=== PATIENT | female | born 1935 | race Caucasian/White ===

== ENCOUNTER 2016-04-17 09:01 | Outpatient (CLI) | payer OTHER ==
[~2016-04-17 09:01] MED LIST: AUGMENTIN875 MG PO; CARDIZEM C1 PO; CARDIZEM CD PO; CARDIZEM LA180 MG PO; CEPHALEXIN500 MG PO; COUMADIN1 MG PO; COUMADIN5 MG PO; FUROSEMIDE20 MG PO; HYDROCHLOROTHIA25 MG PO; MAG6464 MG PO; METOPROLOL TART25 MG PO; MICRO-K 10 EQU10 MEQ PO; NOVOLOG PE100 UNITS/ SC; PANTOPRAZOLE SO40 MG PO; PRAVACHOL80 MG PO; TOPROL XL50 MG PO
== END 2016-04-17 23:00 ==
LOC: LAB SRH 09:01
DX: Z51.81 Encounter for therapeutic drug level monitoring (principal); Z79.01 Long term (current) use of anticoagulants; I48.91 Unspecified atrial fibrillation
CPT/HCPCS: 90074; 94060

== ENCOUNTER 2016-05-25 10:35 | Inpatient (IN) | payer OTHER ==
[~2016-05-25] VITALS: Ht 170.2 cm; Wt 70.1 kg
--- NOTE | 2016-05-25 13:15 | DIAGNOSTIC IMAGING REPORT ---
PROCEDURE: XR CHEST 1 VIEW INDICATION: SHORTNESS OF BREATH TECHNIQUE: Portable AP view 11:50 a.m. COMPARISON: Chest 02/25/2016 03/05/2015 10/01/2014 and 02/09/2014 FINDINGS: Allowing for overlying wires and electrodes, findings suggest a 1.2 cm nodular dense at the right lung base. There is mild basilar parenchymal scarring. The rest of the lungs are clear. Moderate cardiomegaly and pulmonary vascular congestion. No evidence of interstitial edema. Thorax is unchanged. IMPRESSION: 1. There is a 1.2 cm nodule at the right lung base which is visualized on prior chest CT. 2. Moderate cardiomegaly (no change). 3. No evidence of acute process.
--- NOTE | 2016-05-25 17:44 | History & Physical Report ---
Admission Admit Date 05/25/16 Information Source Information Source: Self, Spouse/Partner, ED Record, Old Records History Chief Complaint SOB History of Present Illness 80yoF w/ hx of dCHF, aortic stenosis, afib, restrictive lung disease, who presents with worsening SOB over the past couple days. She has been coughing, but has not seen the color of the phlegm. She denies any fevers. She does have new orthopnea, and her LE swelling has been worsening over the past month or so. She has been on lasix, but her notes that this was increased signifcantly about 6 months ago without improvement in her swelling. She denies any chest pains, but her appetite has been very poor in the last couple weeks. She denies nausea, vomiting, or diarrhea. She denies having an echo done in the last couple years. Patient History 1. CHF (congestive heart failure) 2. Atrial fibrillation 3. Chronic anticoagulation 4. Hypertension 5. Hypercholesterolemia 6. Aortic stenosis Social History Patient denies any history of tobacco/alcohol/drug use. Family History FATHER, . MOTHER, , Age Unknown; Cause: Tumor of central nervous system. SISTER, Age 79. First degree relatives alive and well Daughter, Age 47. First degree relatives alive and well Son, Age 43. First degree relatives alive and well Relation not specified for: FHx: cancer Heart Disease Hypertension Medications and Allergies Medications Current Medications Sig/Jana Start time Last Medication Dose Route Stop Time Status Admin Prednisone 40 MG DAILY 05/26 0900 AC PO Pantoprazole Sodium 40 MG DAILY@0600 05/26 0600 AC Sesquihydrate PO Diltiazem HCl 180 MG BID 05/25 2100 AC PO Furosemide 60 MG BID 05/25 2100 AC IV Metoprolol Tartrate 75 MG BID 05/25 2100 AC PO Albuterol/Ipratropium 3 ML RTQ4H 05/25 2000 AC IN Atorvastatin Calcium 40 MG QPM 05/25 1800 AC PO Acetaminophen 650 MG Q6H PRN 05/25 161 AC PO Al Hydrox/Mg Hydrox/ 15 ML Q1H PRN 05/25 161 AC Simethicone PO Atropine Sulfate 0.5 MG Q3MIN PRN 05/25 1615 AC IV Docusate Sodium 250 MG BID PRN 05/25 1615 AC PO Magnesium Hydroxide 10 ML DAILY PRN 05/25 161 AC PO Morphine Sulfate 1 MG Q30MIN PRN 05/25 1615 AC IV Ondansetron HCl 4 MG Q6H PRN 05/25 1615 AC IV Allergies Coded Allergies: No Known Drug Allergy (07/13/15) Review of Systems Other As per HPI, rest of 10-point ROS unremarkable. Physical Exam Vital Signs / I&Os Vital Signs Date Time Temp Pulse Resp B/P Pulse O2 O2 Flow FiO2 Ox Delivery Rate 05/25 1618 2.0 05/25 1524 2.0 05/25 1217 2.0 General Appearance Alert, Oriented X3, Tachypnic, but able to speak in full sentences w/o accessory muscle use. Audible upper respiratory secretions. HEENT Moist mucous membranes Lungs Crackles throughout, expiratory wheezing Neck Supple, No JVD Cardiovascular Irregularly irregular S1S2, no murmur appreciated over respiratory sounds Abdomen Normal bowel sounds, Soft, No tenderness Extremities 2+ LE edema b/l Skin venous stasis changes of LE's Neurological No lateralizing signs Psych/Mental Status Mental status normal LAB Results Laboratory Tests 05/25 05/25 1230 1230 Chemistry Plasma Sodium (136 - 145 mmol/L) 141 Plasma Potassium (3.5 - 5.1 mmol/L) 3.5 Plasma Chloride (98 - 107 mmol/L) 102 CO2 (Enzymatic) (21 - 32 mmol/L) 28 BUN (7 - 18 mg/dL) 18 Creatinine (0.6 - 1.3 mg/dL) 0.8 Est GFR ( Amer) (mL/min) >60 Est GFR (Non-Af Amer) (mL/min) >60 Glucose (70 - 110 mg/dL) 112 Plasma Calcium (8.5 - 10.1 mg/dL) 8.9 Plasma Magnesium (1.8 - 2.4 mg/dL) 2.0 Total Bilirubin (0.0 - 1.0 mg/dL) 0.7 AST (15 - 37 U/L) 24 ALT (12 - 78 U/L) 23 Alkaline Phosphatase (46 - 116 U/L) 170 Creatine Kinase (24 - 260 U/L) 39 Troponin (0.00 - 1.5 ng/mL) 0.05 B-Natriuretic Peptide (5 - 100 pg/ml) 278 Total Protein (6.4 - 8.2 g/dL) 8.1 Albumin (3.3 - 5.0 g/dL) 3.3 Coagulation INR (0.8 - 1.2) 3.1 Hematology WBC (4.5 - 11.5 K/uL) 7.8 RBC (4.00 - 5.20 M/uL) 4.42 Hgb (12.0 - 16.0 gm/dL) 14.3 Hct (36.0 - 46.0 %) 42.2 MCV (80 - 100 fL) 95 MCH (26 - 34 pg) 32 RDW (11.6 - 14.8 %) 14.1 Neut % (Auto) (50 - 75 %) 72.2 Lymph % (Auto) (25 - 40 %) 16.7 [place] % (Auto) (3 - 14 %) 10.0 Eos % (Auto) (0 - 4 %) 0.6 Baso % (Auto) (0 - 2 %) 0.5 Plt Count, EDTA (150 - 400 K/uL) 234 PUBS MCHC (31 - 37 g/dL) 34 Microbiology Date/Time Procedure - Status Source Growth 05/25 1410 Influenza Screen - COMP NASALPHAR 05/25 1230 Blood Culture - RECD BLOOD Imaging CXR: cardiomegaly and mild vascular congestion Assessment and Plan Problem List 1. Acute respiratory failure with hypoxia Plan Most likely from decompensated heart failure +/-restrictive lung disease. Will wean O2 as possible, treatment as below. 2. Acute decompensated heart failure Plan Had an echo in 2013 w/ EF 68%, but could not assess diastolic function at that time. Since she has required a significant increase in her diuretics with no reported benefit in terms of her swelling, will repeat the echo to see if there has been any change in her cardiac function. Will place on 60mg IV lasix 2xd, goal net negative 500-1000cc over the next 24hrs. Will monitor strict I/Os, as well as improvement in her symptoms. 3. Aortic stenosis Plan noted to be mild on echo in 2013. Will re-evaluate with echo, as her hemodynamics could be tenuous with aggressive diuresis if has become severe. 4. Atrial fibrillation Plan Continue diltiazem, and on 1/2 dose of lopressor due to acute decompensated heart failure. Continue coumadin. Will monitor on telemetry. 5. ACUTE EXACERBATION OF RESTRICTIVE LUNG DISEASE Plan Given steroids and nebs in ED. Wheezing may be more related to pulmonary edema, but will treat with PO prednisone and scheduled nebs for now. No evidence of infectious cause, as no infiltrate and flu negative. FEN: cardiac, KEL PPx: on coumadin Code: FULL, per discussion w/ patient and in ED Dispo: Inpatient LOC for cardiac monitoring and diuresis as above, as will likely require >2MN hospital stay. E&M Codes Admission: Inpt-High/[id number]
--- NOTE | 2016-05-25 18:33 | ED CLINICAL REPORT ---
Clinical Report - Physicians/Mid Levels [facility] [address] [place] [address] 05/25/2016 10:36 Patient: YSABEL GOLDEN Time Seen: 11:02 May 25 2016. Arrived- By private vehicle. Historian- patient. CPT: ER phys charges level 5 plus (#[id number]). EKG interpretation (#[id number]). HISTORY OF PRESENT ILLNESS Chief Complaint: DYSPNEA and HISTORY OF CHRONIC OBSTRUCTIVE PULMONARY DISEASE and CONGESTIVE HEART FAILURE. This started about 2 days [employer]ARD PLATE [employer]; : SHORTNESS OF BREATH, DIFFICULTY BREATHING and WHEEZING and COUGH (and SOB past few days). and is still present. The dyspnea is described as moderate. The patient has had sputum production, a cough and dyspnea on exertion. No fever, sweating episodes, wheezing or chills. No chest pain or discomfort, calf pain, foot swelling or anxiety. No dizziness, tingling, numbness or palpitations. Similar symptoms previously: Recent medical care: Not recently seen/assessed. REVIEW OF SYSTEMS No chills, fever, muscle aches, sweats or nasal congestion. No sore throat, calf pain, chest pain, palpitations or abdominal pain. No black stools, bloody stools, constipation, diarrhea or nausea. No vomiting, urinary frequency, hematuria or skin lesions or rash. No dizziness, numbness, diabetic symptoms, easy bruising or symptoms of hypothyroidism. No difficulty with urination. The patient has had fatigue, a cough, difficulty breathing, pedal edema and weakness. No difficulty walking. PAST HISTORY UTI - Urinary Tract Infection. Congestive Heart Failure. Heart valve problems. Abnormal Test. Atrial Fibrillation. Pulmonary Nodule. Dyspnea. Aortic Stenosis. Mild cognitive disorder. Restrictive lung disease. Paroxysmal A-fib. Hyperlipidemia. Degenerative Joint Disease. Hypertension. Stress incontinence. Reflux. Immunizations. --10:49 Wanda Block R.N. ADDITIONAL SURGERIES: Right hip replacement. Medications: Warfarin Sodium Oral (Tablet 2 mg) 1 tablet (2mg Sat, , Thurs 3mg Sat, Sat, Saturday, Saturday). Vitamin D Oral (Capsule 1000 unit) 1 capsule, 2xday. Slow-Mag Oral 535mg, 1xday. Diltiazem HCl ER Oral 180 mg, 2xdaily. Furosemide Oral 40 mg, 4x a day. Metoprolol Tartrate Oral 150 mg, 2xday. Potassimin Oral 20 mEq, 4xdaily. Pravastatin Sodium Oral (Tablet 80 mg) 1 tablet, daily. Allergies: None. SOCIAL HISTORY Never smoker. ADDITIONAL NOTES The nursing notes have been reviewed. PHYSICAL EXAM Vital Signs: 05/25/2016 10:46 BP: 131/83. HR: 81. RR: 32. O2 saturation: 90%. Temp: 97.5 F. Pain level now: 0/10. Appearance: Alert. Patient in mild distress. Eyes: Eyes normal inspection. ENT: Nose normal. Pharynx normal. Neck: Normal inspection. No jugular venous distention. Neck supple. CVS: Abnormal rhythm, which is irregularly irregular. 1/6 mid systolic murmur. Respiratory: Moderate respiratory distress with anxiety and tachypnea. Expiratory moderate bilateral wheezes diffusely. Abdomen: Soft and nontender. Back: Normal inspection. Skin: Skin warm. Normal skin color. No rash. Extremities: Bilateral moderate 2+ edema of the lower extremities. Extremities exhibit normal ROM. Neuro: Oriented X 3. No motor deficit. No sensory deficit. Reflexes normal. LABS, X-RAYS, AND EKG EKG: Rate: 86. Atrial fibrillation. Normal QRS complex. Q waves in lead V1 and V2. Non-specific ST segment / T wave abnormalities. EKG unchanged when compared with prior EKG. The study has been interpreted contemporaneously. The EKG appears to be a good tracing. Artifact present. Chest X-ray: (Mild vascular congestion). Views: AP (portable). Technique: good. The X-rays were independently viewed by me and interpreted contemporaneously by me. Prior films were not available for comparison. Laboratory Tests: CBC w Diff: (LESLEE: 05/25/2016 12:30) ( MsgRcvd 05/25/2016 12:52) Final results Test Result Flag Units (Reference) WHITE BLOOD COUNT 7.8 K/uL (4.5-11.5) RED BLOOD COUNT 4.42 M/uL (4.00-5.20) HEMOGLOBIN 14.3 gm/dL (12.0-16.0) HEMATOCRIT 42.2 % (36.0-46.0) MEAN CELL VOLUME 95 fL (80-100) MEAN CORPUSCULAR HGB 32 pg (26-34) MEAN CORPUSCULAR HGB CONC 34 g/dL (31-37) RED CELL DISTRIBUTION WIDTH 14.1 % (11.6-14.8) PLATELET COUNT 234 K/uL (150-400) NEUTROPHIL % 72.2 % (50-75) LYMPH % 16.7 L % (25-40) MONO % 10.0 % (3-14) EOSINOPHIL % 0.6 % (0-4) BASOPHIL % 0.5 % (0-2) BNP: (LESLEE: 05/25/2016 12:30) ( [facility] 05/25/2016 13:23) Final results Test Result Flag Units (Reference) B-TYPE NATRIURETIC PEPTIDE 278 H pg/ml (5-100) CHEM 13 PANEL: (LESLEE: 05/25/2016 12:30) ( [facility] 05/25/2016 13:21) Final results Test Result Flag Units (Reference) GLUCOSE 112 H mg/dL (70-110) BUN 18 mg/dL (7-18) CREATININE 0.8 mg/dL (0.6-1.3) Estimated GFR >60 mL/min Estimated GFR- >60 mL/min Note: Persistent reduction over 3 months in eGFR<60 mL/min/1.73 m2 defines CKD. Patients with eGFR values>=60 mL/min/1.73 m2 may also have CKD if evidence ofpersistent proteinuria. Additional information may be foundat www.[email or web address].org. SODIUM 141 mmol/L (136-145) POTASSIUM 3.5 mmol/L (3.5-5.1) CHLORIDE 102 mmol/L (98-107) CARBON DIOXIDE 28 mmol/L (21-32) CALCIUM 8.9 mg/dL (8.5-10.1) TOTAL PROTEIN 8.1 g/dL (6.4-8.2) ALBUMIN 3.3 g/dL (3.3-5.0) BILIRUBIN, TOTAL 0.7 mg/dL (0.0-1.0) ALKALINE PHOSPHATASE 170 H U/L (46-116) AST (SGOT) 24 U/L (15-37) ALT (SGPT) 23 U/L (12-78) MAGNESIUM 2.0 mg/dL (1.8-2.4) CPK 39 U/L (24-260) TROPONIN I 0.05 ng/mL (0.00-1.5) TROPONIN REFERENCE RANGE:<0.1 NEGATIVE0.1-1.5 INDETERMINANT>1.5 POSITIVE Rapid Influenza Screen: (LESLEE: 05/25/2016 14:10) ( MsgRcvd 05/25/2016 14:37) Final results SPECIMEN DESCRIPTION: SWAB Test Result Flag Units (Reference) RAPID INFLUENZA SCREEN DATE: 05/25/16 INFLUENZA A: NEGATIVE SCREEN FOR INFLUENZA A INFLUENZA B: NEGATIVE SCREEN FOR INFLUENZA B . PROGRESS AND PROCEDURES Course of Care: BC times 1 HHN albuterol : not much change./ Lasix 40 mg IV No much urine output Xopenex HHN Solumedriol 80 mg IV Rocephin 2g IV Still with moderate wheezing . Drops sat to 90% with ambulation while on NC 02. Discussed case with on-call health care provider, (G[place]). Reviewed test results. Agreed upon treatment plan and decision to admit. Health care provider will see patient in ED. Patient/family counseled. Old medical records ordered. Disposition orders written. Disposition: Admitted to Acute Care. CLINICAL IMPRESSION Acute exacerbation of restrictive lung disease. Hypoxia Mild CHF Valvular heart disease. (Electronically signed by Wilton Gross MD 05/25/2016 16:31)
--- NOTE | 2016-05-25 18:33 | ED NURSING NOTES ---
Clinical Report - Nurses [facility] [address] [place] [address] 05/25/2016 10:36 Patient: YSABEL GOLDEN TRIAGE Triage time 10:46 May 25 2016. Acuity: LEVEL 3. Chief Complaint: SHORTNESS OF BREATH, DIFFICULTY BREATHING and WHEEZING and COUGH (and SOB past few days). 10:51 05/25/16. --10:51 Wanda Block R.N. 10:46 05/25/16. BP: 131/83 (regular adult cuff) taken on the left arm, while sitting. HR: 81. RR: 32. O2 saturation: 90% on room air. Temp: 97.5 F (oral). Pain level now: 0/10. --10:51 Wanda Block R.N. 10:51 05/25/16. --10:51 Wanda Block R.N. Weight: 72.5 kg stated. Height/Length: 67 inches Per Patient. BMI: 25.1. --10:47 Wanda Block R.N. Medications Diltiazem HCl ER Oral 180 mg, 2xdaily. Furosemide Oral 40 mg, 4x a day. Metoprolol Tartrate Oral 150 mg, 2xday. Potassimin Oral 20 mEq, 4xdaily. Pravastatin Sodium Oral (Tablet 80 mg) 1 tablet, daily. --10:48 Wanda Block R.N. Slow-Mag Oral 535mg, 1xday. --11:06 Wanda Block R.N. Vitamin D Oral (Capsule 1000 unit) 1 capsule, 2xday. --11:07 Wanda Block R.N. Warfarin Sodium Oral (Tablet 2 mg) 1 tablet (2mg Sun, Tu, Thurs 3mg Mon, Sat, Saturday, Saturday). --11:09 Wanda Block R.N. The following entry was struck by Wanda Block R.N., 11:09 (05/25/16) Reason - other. <<STRICKEN ENTRY-- Warfarin Sodium Oral (2 mg tu, sat, sat, sat 3 mg mon, , sat). --10:48 Wanda Block R.N. --END STRIKE>> The following entry was struck and corrected by [place] Block R.N., 11:07 (05/25/16) Reason for correction - other(correction). <<STRICKEN ENTRY-- Metoprolol Tartrate Oral 25 mg ("I believe it's 25 mg"). --10:48 Wanda Block R.N. --END STRIKE>> The following entry was struck and corrected by Wanda Block R.N., 11:06 (05/25/16) Reason for correction - other(correction). <<STRICKEN ENTRY-- Pravastatin Sodium Oral (can't remember dose). --10:48 Wanda Block R.N. --END STRIKE>> The following entry was struck and corrected by Wanda Block R.N., 11:05 (05/25/16) Reason for correction - other(correction). <<STRICQUINN ENTRY-- Furosemide Oral 80 mg, daily. --10:48 Wanda Block R.N. --END STRIKE>> The following entry was struck and corrected by Wanda Block R.N., 11:04 (05/25/16) Reason for correction - other(correction). <<[facility]-- Potassimin Oral 20 mEq, 2xdaily ("I think that's the dose"). --10:48 Wanda Block R.N. --END STRIKE>>. Allergies None. --10:48 Wanda Block R.N. History Arrived by private vehicle. Historian: patient. Accompanied by spouse. This started last night. She has had a cough and wheezing. Treatment ARTS MANAGER: (Advil last night). PAST MEDICAL HX: Congestive heart failure. SOCIAL HX: Never smoker. No alcohol use or drug use. No infectious disease exposure. ABUSE ASSESSMENT: No report of abuse. --10:51 Wanda Block R.N. PAST MEDICAL HX: Hypertension. --10:51 Wanda Block R.N. PROBLEMS: UTI - Urinary Tract Infection. Congestive Heart Failure. Heart valve problems. Abnormal Test. Atrial Fibrillation. Pulmonary Nodule. Dyspnea. Aortic Stenosis. Mild cognitive disorder. Restrictive lung disease. Paroxysmal A-fib. Hyperlipidemia. Degenerative Joint Disease. Hypertension. Stress incontinence. Reflux. Immunizations. --10:49 Wanda Block R.N. ADDITIONAL SURGERIES: Right hip replacement. --10:49 Wanda Block R.N. Interventions ID band on patient. To treatment room. --10:51 Wanda Block R.N. PHYSICAL ASSESSMENT 10:54 05/25/16. To room via wheelchair. Patient gowned. GENERAL / NEURO / PSYCH: Oriented X 4. RESPIRATORY: Moderate respiratory distress. Stridor present. Prolonged expirations. Wheezing present. --10:54 Wanda Block R.N. NURSING PROGRESS NOTES 10:54 05/25/16. Oxygen administered. Patient gowned. Head of bed elevated. Reassurance given. Two patient identifiers checked. Call light placed in reach. Side rails up x 1. Bed placed in lowest position. Brakes of bed on. Patient ready for evaluation- chart flagged. --10:54 Wanda Block R.N. 12:13 05/25/16. BP: 125/79 (regular adult cuff) taken on the left arm, while lying. HR: 90. RR: 24 (regular and labored). O2 saturation: 98% on room air. Temp: 97.6 F. Pain level now: 0/10. --12:16 Wanda Block R.N. 12:00 05/25/2016 Site #1 started via IV in the right with an 22g angiocath, with aseptic technique and good blood return; one attempt. Saline lock flushed with 10 mL saline. --12:17 True Engel R.N. 12:16 05/25/2016 Albuterol Neb TX Nebulizer 1 unit dose given. Given by the respiratory therapist. Allergies verified and confirmed 5 rights. --12:16 [place] Tony 12:16 05/25/16. ( RT here giving breathing treatment). --12:16 Wanda Block R.N. EKG time: (11:47). EKG was performed by a tech and shown to the ED physician. --12:23 JoseOswaldo 13:46 05/25/2016 Lasix IVP 40 mg given over 4 minute(s) via site #1. Allergies verified and confirmed 5 rights. IV patency established. IV site checked: no pain, redness, or swelling. IV flushed thoroughly pre- and post-medication administration. IVP given by RN. --13:52 True Engel R.N. 11:25 05/25/16. BP: 108/70. HR: 81. RR: 26. O2 saturation: 95% on nasal cannula at 2 liters/minute. Pain level now: 0/10. --14:15 True Engel R.N. 12:40 05/25/16. BP: 124/74. HR: 83. RR: 24. O2 saturation: 98% on nasal cannula at 2 liters/minute. Pain level now: 0/10. --14:17 True Engel R.N. 13:10 05/25/16. BP: 100/66. HR: 78. RR: 22. O2 saturation: 96% on nasal cannula at 2 liters/minute. Pain level now: 0/10. --14:59 True Engel R.N. 13:55 05/25/16. BP: 115/78. HR: 76. RR: 23. O2 saturation: 96% on room air. Pain level now: 0/10. --15:00 True Engel R.N. 13:00 05/25/2016 Albuterol Neb TX Response: no adverse reaction (minimal improvement). --15:10 True Engel R.N. 15:20 05/25/2016 SOLU-MEDROL (MethylPREDNISolone Sodium Succ) IVP 80 mg given over 1 minute(s) via site #1. Allergies verified and confirmed 5 rights. IV patency established. IV site checked: no pain, redness, or swelling. IV flushed thoroughly pre- and post-medication administration. IVP given by RN. --15:21 True Engel R.N. 15:23 05/25/2016 Xopenex (Levalbuterol HCl) Neb TX 1 unit dose given. Given by the respiratory therapist. Allergies verified and confirmed 5 rights. --15:23 [place] Tony 16:05 05/25/2016 Started 2 gm of Rocephin (CefTRIAXone Sodium) IVPB in bag #1 50 mL; at 100 mL/hr over 30 minute(s) via site #1 via IV pump. Allergies verified and confirmed 5 rights. IV patency established. IV site checked: no pain, redness, or swelling. IV flushed thoroughly pre- and post-medication administration (via Microdrip tubing). --16:05 True Engel R.N. 18:13 05/25/2016 Rocephin IVPB Discontinued: bag #1 completed. Total amount infused: 50 mL. IV patency established. IV site checked: no pain, redness, or swelling. IV flushed thoroughly. --18:13 Wanda Block R.N. 18:16 05/25/16. ( Patient states she is breathing much better now, "I've improved"). --18:16 Wanda Block R.N. 18:07 05/25/16. BP: 117/62 (regular adult cuff) taken on the left arm, while sitting. HR: 87. RR: 26. O2 saturation: 95%. O2 started via nasal cannula at 2 liters/minute. Temp: 97.5 F (oral). Pain level now: 0/10. --18:16 Wanda Block R.N. 18:15. ( Pt incontinent of urine. tech helped pt with hygiene and changed into clean depends.). --18:44 Karol Farah 18:20. ( Pt given 1/2 a turkey sandwich with orange juice and jello.). --18:45 Karol Farah. Locked/Released at 05/29/2016 8:56 by Asha Cuba R.N.
--- NOTE | 2016-05-25 18:33 | ED CLINICAL REPORT ---
Clinical Report - Physicians/Mid Levels [facility] [address] [place] [address] 05/25/2016 10:36 Patient: YSABEL GOLDEN Time Seen: 11:02 May 25 2016. Arrived- By private vehicle. Historian- patient. CPT: ER phys charges level 5 plus (#[id number]). EKG interpretation (#[id number]). HISTORY OF PRESENT ILLNESS Chief Complaint: DYSPNEA and HISTORY OF CHRONIC OBSTRUCTIVE PULMONARY DISEASE and CONGESTIVE HEART FAILURE. 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 and is still present. The dyspnea is described as moderate. The patient has had sputum production, a cough and dyspnea on exertion. No fever, sweating episodes, wheezing or chills. No chest pain or discomfort, calf pain, foot swelling or anxiety. No dizziness, tingling, numbness or palpitations. Similar symptoms previously: Recent medical care: Not recently seen/assessed. REVIEW OF SYSTEMS No chills, fever, muscle aches, sweats or nasal congestion. No sore throat, calf pain, chest pain, palpitations or abdominal pain. No black stools, bloody stools, constipation, diarrhea or nausea. No vomiting, urinary frequency, hematuria or skin lesions or rash. No dizziness, numbness, diabetic symptoms, easy bruising or symptoms of hypothyroidism. No difficulty with urination. The patient has had fatigue, a cough, difficulty breathing, pedal edema and weakness. No difficulty walking. PAST HISTORY UTI - Urinary Tract Infection. Congestive Heart Failure. Heart valve problems. Abnormal Test. Atrial Fibrillation. Pulmonary Nodule. Dyspnea. Aortic Stenosis. Mild cognitive disorder. Restrictive lung disease. Paroxysmal A-fib. Hyperlipidemia. Degenerative Joint Disease. Hypertension. Stress incontinence. Reflux. Immunizations. --10:49 Wanda Block R.N. ADDITIONAL SURGERIES: Right hip replacement. Medications: Warfarin Sodium Oral (Tablet 2 mg) 1 tablet (2mg Sat, , Thurs 3mg Sat, Sat, Saturday, Saturday). Vitamin D Oral (Capsule 1000 unit) 1 capsule, 2xday. Slow-Mag Oral 535mg, 1xday. Diltiazem HCl ER Oral 180 mg, 2xdaily. Furosemide Oral 40 mg, 4x a day. Metoprolol Tartrate Oral 150 mg, 2xday. Potassimin Oral 20 mEq, 4xdaily. Pravastatin Sodium Oral (Tablet 80 mg) 1 tablet, daily. Allergies: None. SOCIAL HISTORY Never smoker. ADDITIONAL NOTES The nursing notes have been reviewed. PHYSICAL EXAM Vital Signs: 05/25/2016 10:46 BP: 131/83. HR: 81. RR: 32. O2 saturation: 90%. Temp: 97.5 F. Pain level now: 0/10. Appearance: Alert. Patient in mild distress. Eyes: Eyes normal inspection. ENT: Nose normal. Pharynx normal. Neck: Normal inspection. No jugular venous distention. Neck supple. CVS: Abnormal rhythm, which is irregularly irregular. 1/6 mid systolic murmur. Respiratory: Moderate respiratory distress with anxiety and tachypnea. Expiratory moderate bilateral wheezes diffusely. Abdomen: Soft and nontender. Back: Normal inspection. Skin: Skin warm. Normal skin color. No rash. Extremities: Bilateral moderate 2+ edema of the lower extremities. Extremities exhibit normal ROM. Neuro: Oriented X 3. No motor deficit. No sensory deficit. Reflexes normal. LABS, X-RAYS, AND EKG EKG: Rate: 86. Atrial fibrillation. Normal QRS complex. Q waves in lead V1 and V2. Non-specific ST segment / T wave abnormalities. EKG unchanged when compared with prior EKG. The study has been interpreted contemporaneously. The EKG appears to be a good tracing. Artifact present. Chest X-ray: (Mild vascular congestion). Views: AP (portable). Technique: good. The X-rays were independently viewed by me and interpreted contemporaneously by me. Prior films were not available for comparison. Laboratory Tests: CBC w Diff: (LESLEE: 05/25/2016 12:30) ( MsgRcvd 05/25/2016 12:52) Final results Test Result Flag Units (Reference) WHITE BLOOD COUNT 7.8 K/uL (4.5-11.5) RED BLOOD COUNT 4.42 M/uL (4.00-5.20) HEMOGLOBIN 14.3 gm/dL (12.0-16.0) HEMATOCRIT 42.2 % (36.0-46.0) MEAN CELL VOLUME 95 fL (80-100) MEAN CORPUSCULAR HGB 32 pg (26-34) MEAN CORPUSCULAR HGB CONC 34 g/dL (31-37) RED CELL DISTRIBUTION WIDTH 14.1 % (11.6-14.8) PLATELET COUNT 234 K/uL (150-400) NEUTROPHIL % 72.2 % (50-75) LYMPH % 16.7 L % (25-40) MONO % 10.0 % (3-14) EOSINOPHIL % 0.6 % (0-4) BASOPHIL % 0.5 % (0-2) BNP: (LESLEE: 05/25/2016 12:30) ( [facility] 05/25/2016 13:23) Final results Test Result Flag Units (Reference) B-TYPE NATRIURETIC PEPTIDE 278 H pg/ml (5-100) CHEM 13 PANEL: (LESLEE: 05/25/2016 12:30) ( [facility] 05/25/2016 13:21) Final results Test Result Flag Units (Reference) GLUCOSE 112 H mg/dL (70-110) BUN 18 mg/dL (7-18) CREATININE 0.8 mg/dL (0.6-1.3) Estimated GFR >60 mL/min Estimated GFR- >60 mL/min Note: Persistent reduction over 3 months in eGFR<60 mL/min/1.73 m2 defines CKD. Patients with eGFR values>=60 mL/min/1.73 m2 may also have CKD if evidence ofpersistent proteinuria. Additional information may be foundat www.[email or web address].org. SODIUM 141 mmol/L (136-145) POTASSIUM 3.5 mmol/L (3.5-5.1) CHLORIDE 102 mmol/L (98-107) CARBON DIOXIDE 28 mmol/L (21-32) CALCIUM 8.9 mg/dL (8.5-10.1) TOTAL PROTEIN 8.1 g/dL (6.4-8.2) ALBUMIN 3.3 g/dL (3.3-5.0) BILIRUBIN, TOTAL 0.7 mg/dL (0.0-1.0) ALKALINE PHOSPHATASE 170 H U/L (46-116) AST (SGOT) 24 U/L (15-37) ALT (SGPT) 23 U/L (12-78) MAGNESIUM 2.0 mg/dL (1.8-2.4) CPK 39 U/L (24-260) TROPONIN I 0.05 ng/mL (0.00-1.5) TROPONIN REFERENCE RANGE:<0.1 NEGATIVE0.1-1.5 INDETERMINANT>1.5 POSITIVE Rapid Influenza Screen: (LESLEE: 05/25/2016 14:10) ( MsgRcvd 05/25/2016 14:37) Final results SPECIMEN DESCRIPTION: SWAB Test Result Flag Units (Reference) RAPID INFLUENZA SCREEN DATE: 05/25/16 INFLUENZA A: NEGATIVE SCREEN FOR INFLUENZA A INFLUENZA B: NEGATIVE SCREEN FOR INFLUENZA B . PROGRESS AND PROCEDURES Course of Care: BC times 1 HHN albuterol : not much change./ Lasix 40 mg IV No much urine output Xopenex HHN Solumedriol 80 mg IV Rocephin 2g IV Still with moderate wheezing . Drops sat to 90% with ambulation while on NC 02. Discussed case with on-call health care provider, (Gasper). Reviewed test results. Agreed upon treatment plan and decision to admit. Health care provider will see patient in ED. Patient/family counseled. Old medical records ordered. Disposition orders written. Disposition: Admitted to Acute Care. CLINICAL IMPRESSION Acute exacerbation of restrictive lung disease. Hypoxia Mild CHF Valvular heart disease. (Electronically signed by Wilton Gross MD 05/25/2016 16:31)
--- NOTE | 2016-05-25 18:33 | ED ORDER SUMMARY ---
..... Patient: YSABEL GOLDEN OrderSheet [facility] VisitID: [id number] [place] [address] 80y, F Registration Date/Time: 05/25/2016 ORDER SHEET Weight: 72.5 kg (stated) Allergies: None GENERAL ORDERS: Bulk Picker (Continuous) (11:05/25/2016 Royer OHARA) (11:32 JSanders R.N.) (Ack 11:35 Samantha) Chest 1V Urgent (11:05/25/2016 Royer OHARA) (Ack 11:35 Samantha) (12:10 JSanders R.N.) (12:10 JSimbeck R.N.) Cardiac Panel Stat (:05/25/2016 Royer OHARA) (Ack 11:35 Samantha) (12:59 JSimbeck R.N.) BNP Urgent (11:05/25/2016 Royer OHARA) (Ack 11:35 Samantha) (12:59 JSimbeck R.N.) Oxygen (2 L/min) (NC) (11:05/25/2016 Royre OHARA) (11:32 JSanders R.N.) (Ack 11:35 Samantha) Pulse oximeter (:05/25/2016 Royer OHARA) (11:34 JSanders R.N.) (Ack 11:35 Samantha) EKG - ER Stat (:05/25/2016 Royer OHARA) (Ack 11:35 Samantha) (12:10 JSanders R.N.) Blood Culture (No) (N/A) Urgent (11:05/25/2016 Royer OHARA) (Ack 11:35 Samantha) (12:59 JSimbeck R.N.) Rapid Influenza Screen (Nasal Pharyngeal) (swab) Urgent (14:03 05/25/2016 Royer OHARA) (Ack 14:06 Samantha) (14:13 JSimbeck R.N.) MEDICATION ORDERS: Albuterol Neb Tx 2.5 mg (NOW, HHN) (12:09 05/25/2016 Royer OHARA) (12:16 Mark) Xopenex Neb Tx 1 unit dose (NOW) (15:13 05/25/2016 Royer OHARA) (15:23 Mark) IV FLUIDS: IV Saline Lock (11:31 05/25/2016 Royer OHARA) (12:17 Pamela R.N.) Lasix IV 40 mg (NOW) (13:04 05/25/2016 Royer OHARA) (13:52 Pamela R.N.) Solu-MEDROL IV 80 mg (NOW) (15:12 05/25/2016 Royer OHARA) (15:21 Pamela R.N.) Rocephin IV 2 gm/50mL (NOW) (15:37 05/25/2016 Royer OHARA) (16:05 Pamela R.N.) ORDER SHEET NOTES: [Electronically signed by Wilton Gross MD (16:31 05/25/2016)] [Electronically signed by Asha Cuba R.N. (08:56 05/29/2016)] [Electronically locked/signed by Asha Cuba R.N. (08:56 05/29/2016)]
--- NOTE | 2016-05-25 18:33 | ED ORDER SUMMARY ---
..... 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) (11:05/25/2016 Royer OHARA) (11:32 JSanders R.N.) (Ack 11:35 Samantha) Chest 1V Urgent (11:05/25/2016 Royer OHARA) (Ack 11:35 Samantha) (12:10 JSanders R.N.) (12:10 JSimbeck R.N.) Cardiac Panel Stat (:05/25/2016 Royer OHARA) (Ack 11:35 Samantha) (12:59 JSimbeck R.N.) BNP Urgent (11:05/25/2016 Royer OHARA) (Ack 11:35 Samantha) (12:59 JSimbeck R.N.) Oxygen (2 L/min) (NC) (11:05/25/2016 Royer OHARA) (11:32 JSanders R.N.) (Ack 11:35 Samantha) Pulse oximeter (:05/25/2016 Royer OHARA) (11:34 JSanders R.N.) (Ack 11:35 Samantha) EKG - ER Stat (:05/25/2016 Royer OHARA) (Ack 11:35 Samantha) (12:10 JSanders R.N.) Blood Culture (No) (N/A) Urgent (11:05/25/2016 Royer OHARA) (Ack 11:35 Samantha) (12:59 JSimbeck R.N.) Rapid Influenza Screen (Nasal Pharyngeal) (swab) Urgent (14:03 05/25/2016 Royer OHARA) (Ack 14:06 Samantha) (14:13 JSimbeck R.N.) MEDICATION ORDERS: Albuterol Neb Tx 2.5 mg (NOW, HHN) (12:09 05/25/2016 Royer OHARA) (12:16 Mark) Xopenex Neb Tx 1 unit dose (NOW) (15:13 05/25/2016 Royer OHARA) (15:23 Mark) IV FLUIDS: IV Saline Lock (11:31 05/25/2016 Royer OHARA) (12:17 Pamela R.N.) Lasix IV 40 mg (NOW) (13:04 05/25/2016 Royer OHARA) (13:52 Pamela R.N.) Solu-MEDROL IV 80 mg (NOW) (15:12 05/25/2016 Royer OHARA) (15:21 Pamela R.N.) Rocephin IV 2 gm/50mL (NOW) (15:37 05/25/2016 Royer OHARA) (16:05 Pamela R.N.) ORDER SHEET NOTES: [Electronically signed by Wilton Gross MD (16:31 05/25/2016)] [Electronically signed by Asha Cuba R.N. (08:56 05/29/2016)] [Electronically locked/signed by Asha Cuba R.N. (08:56 05/29/2016)]
--- NOTE | 2016-05-25 19:21 | DIAGNOSTIC IMAGING REPORT ---
PROCEDURE: US VENOUS - BILATERAL EXT INDICATION: r/o dvt, b/l worsening LE edema TECHNIQUE: Color Doppler duplex imaging of the deep and superficial venous system without and with compression. COMPARISON: None. FINDINGS: RIGHT LOWER EXTREMITY: Deep and superficial venous system of the right lower extremity is within normal limits. There is no evidence of deep vein thrombosis or superficial thrombophlebitis. LEFT LOWER EXTREMITY: Deep and superficial venous system of the left lower extremity is within normal limits. There is no evidence of deep vein thrombosis or superficial thrombophlebitis. IMPRESSION: 1. Negative venous ultrasound of the bilateral lower extremities.
--- NOTE | 2016-05-25 20:04 | DIAGNOSTIC IMAGING REPORT ---
REFERRING PHYSICIAN/PROVIDER: Kyleigh CONSULTING SENIOR PAYROLL ADMINISTRATOR: Val Arizmendi MD PROCEDURE: Echocardiogram TECHNICAL QUALITY: fair Interpretation Summary Afib with controlled rate. Normal LV size; moderate concentric LVH; normal wall motion and LV systolic function. EF is 60-65%. There is mild LA enlargement; otherwise normal chamber sizes. Mitral valve leaflets are moderately thickened and calcified. There is moderate MAC with moderate associated MR. Aortic valve leaflets are mildly thickened. There is moderate-severe aortic stenosis; peak velocity is 3.8 m/sec; mean gradient is 33 mm Hg. Tricuspid valve leaflets are normal . Estimated PA systolic pressure is 55 mm Hg assuming RA pressure of 10 mm Hg. IVC is not well visualized. No prior study available for comparison. Procedure: The patient was in atrial fibrillation with controlled ventricular rate during the exam. Left Ventricle: The left ventricle is normal in size. There is moderate concentric left ventricular hypertrophy. IVS is 1.5 cm in thickness. Right Ventricle: The right ventricle is normal in size, thickness and function. Atria: The left atrium is mildly dilated. The right atrium is normal in size. Mitral Valve: The mitral valve leaflets appear moderately thickened, but open well. The mitral valve leaflets are moderately calcified. There is mild mitral stenosis. mean gradient is 3 mm Hg. There is moderate mitral regurgitation. Aortic Valve: There is severe aortic valve sclerosis. There is moderate to severe aortic stenosis. No aortic regurgitation is present. Tricuspid Valve: The tricuspid valve is normal. There is moderate tricuspid regurgitation. Great Vessels: The aortic root is normal size. The inferior vena cava appeared normal. Pericardium/ Pleura There is no pericardial effusion. There is no pleural effusion.
[2016-05-25 20:07] VITALS: BP 119/66
[2016-05-25 23:53] VITALS: BP 103/63
[2016-05-26 03:12] VITALS: BP 113/65
[2016-05-26 07:17] VITALS: BP 108/73
--- NOTE | 2016-05-26 10:35 | Progress Note ---
Subjective General Patient feels her breathing is much better. Still requiring about 2L NC. Denies any chest pains. Feels appetite is pretty good this morning. Physical Exam Vital Signs / I&Os Vital Signs Date Time Temp Pulse Resp B/P Pulse O2 O2 Flow FiO2 Ox Delivery Rate 05/26 0717 97.5 86 18 108/73 97 Nasal 2.0 Cannula 05/26 0528 2.0 05/26 0312 97.5 59 16 113/65 95 Nasal 2.0 Cannula 05/26 0045 Nasal Cannula 05/26 0001 2.0 05/25 2353 97.5 79 16 103/63 96 Nasal 2.0 Cannula 05/25 2048 2.0 05/25 2006 98.2 77 20 119/66 93 Nasal 2.0 Cannula 05/25 1618 2.0 05/25 1524 2.0 05/25 1217 2.0 I&O 05/26 0000 05/25 1600 05/25 0800 Intake Total 0 Output Total 0 Balance 0 General Appearance Alert, Oriented X3, Cooperative, No acute distress, Breathing comfortably today HEENT Moist mucous membranes Lungs Crackles still at bases, expiratory wheezing present but greatly improved. Neck Supple Cardiovascular Irregularly irregular rhythm, ii/vi systolic murmur at 2RICS Abdomen Normal bowel sounds, Soft, No tenderness Extremities 1+ LE edema, improving Skin No Rashes Neurological No lateralizing signs Psych/Mental Status Mental status normal LAB Results Laboratory Tests 05/26 05/26 05/25 05/25 0405 0405 1230 1230 Chemistry Plasma Sodium (136 - 145 mmol/L) 141 141 Plasma Potassium (3.5 - 5.1 mmol/L) 3.4 3.5 Plasma Chloride (98 - 107 mmol/L) 103 102 CO2 (Enzymatic) (21 - 32 mmol/L) 27 28 BUN (7 - 18 mg/dL) 21 18 Creatinine (0.6 - 1.3 mg/dL) 0.9 0.8 Est GFR ( Amer) (mL/min) >60 >60 Est GFR (Non-Af Amer) (mL/min) >60 >60 Glucose (70 - 110 mg/dL) 204 112 Plasma Calcium (8.5 - 10.1 mg/dL) 8.4 8.9 Plasma Magnesium (1.8 - 2.4 mg/dL) 2.0 2.0 Total Bilirubin (0.0 - 1.0 mg/dL) 0.7 AST (15 - 37 U/L) 24 ALT (12 - 78 U/L) 23 Alkaline Phosphatase (46 - 116 U/L) 170 Creatine Kinase (24 - 260 U/L) 39 Troponin (0.00 - 1.5 ng/mL) 0.07 0.05 B-Natriuretic Peptide (5 - 100 pg/ml) 278 Total Protein (6.4 - 8.2 g/dL) 8.1 Albumin (3.3 - 5.0 g/dL) 3.3 Coagulation INR (0.8 - 1.2) 3.6 3.1 Hematology WBC (4.5 - 11.5 K/uL) 3.7 7.8 RBC (4.00 - 5.20 M/uL) 4.09 4.42 Hgb (12.0 - 16.0 gm/dL) 13.1 14.3 Hct (36.0 - 46.0 %) 38.4 42.2 MCV (80 - 100 fL) 94 95 MCH (26 - 34 pg) 32 32 RDW (11.6 - 14.8 %) 13.8 14.1 Neut % (Auto) (50 - 75 %) 76.5 72.2 Lymph % (Auto) (25 - 40 %) 19.2 16.7 [place] % (Auto) (3 - 14 %) 4.0 10.0 Eos % (Auto) (0 - 4 %) 0 0.6 Baso % (Auto) (0 - 2 %) 0.3 0.5 Plt Count, EDTA (150 - 400 K/uL) 229 234 PUBS MCHC (31 - 37 g/dL) 34 34 Microbiology Date/Time Procedure - Status Source Growth 05/26 0748 Blood Culture - RECD BLOOD 05/26 0743 Blood Culture - RECD BLOOD 05/25 1410 Influenza Screen - COMP NASALPHAR 05/25 1230 Blood Culture - RES BLOOD GRAM POSITIVE COCCI Assessment and Plan Problem List 1. Acute respiratory failure with hypoxia Plan Symptomatically improving with below treatments. Will work to wean off oxygen. 2. Acute decompensated heart failure Plan 2/2 mod-severe . Unfortunatly, we were not able to get accurate I/O's during the transfer from ER to the floor, but patient has symptomatically improved. Will continue current dose of IV lasix, and work for goal of 500-1000cc negative in next 24hrs. Echo showing EF 60-65%. LE dopplers negative for DVT. 3. Aortic stenosis Plan Mod-severe, as noted on echo. Does not quite meet criteria for valve replacement (peak velocity 3.8m/sec, gradient 33mmHg). She's not sure if she sees a family centered specialist as an outpatient, but this will be very important for her upon discharge. Will work to make sure she has this follow up, as she may eventually require valve replacement. 4. ACUTE EXACERBATION OF RESTRICTIVE LUNG DISEASE Plan Continue on prednisone, nebs. 5. Atrial fibrillation Plan Continue diltiazem and lopressor for rate control. Continue anticoagulation w/ coumadin. FEN: cardiac, KEL PPx: on coumadin Code: FULL Dispo: Pending continued need for IV diuresis and ability to wean off O2. E&M Codes Rounding: Inpt-High/00707
[2016-05-26 12:04] VITALS: BP 105/65
[2016-05-26 14:34] VITALS: BP 95/50
[2016-05-26] MEDS ORDERED: FUROSEMIDE40 MG PO (18:17)
[2016-05-26] MEDS ORDERED: VITAMIN D-31000 UNIT PO (18:20)
[2016-05-26] MEDS ORDERED: COUMADIN2 MG PO (18:21)
[2016-05-26] MEDS ORDERED: COUMADIN3 MG PO (18:22)
[2016-05-26] MEDS ORDERED: MAG-G500 MG PO (18:23)
[2016-05-26] MEDS ORDERED: LOPRESSOR50 MG PO (18:24)
[2016-05-26 18:49] VITALS: BP 111/60
[2016-05-26 23:20] VITALS: BP 116/71
[2016-05-27 02:50] VITALS: BP 119/68
[2016-05-27 06:40] VITALS: BP 118/70
[2016-05-27 10:04] VITALS: BP 102/62
--- NOTE | 2016-05-27 10:38 | Progress Note ---
Subjective General Patient's breathing back to baseline. Has no complaints, and wants to go home. Daughter arrived, and notes that her dementia has been worse the last couple weeks, and usually this means she has a UTI. She also states that the patient's living situation is quite concerning, and she has had social work associate to the house 3 times but nothing could be done. The patient and her have refused placement in RETIREMENT or SNF in the past. The daughter tries to help as much as they will allow. Physical Exam Vital Signs / I&Os Vital Signs Date Time Temp Pulse Resp B/P Pulse O2 O2 Flow FiO2 Ox Delivery Rate 05/27 1004 97.7 83 18 102/62 96 05/27 0640 97.9 69 18 118/70 97 Nasal 2.0 Cannula 05/27 0258 Nasal 2.0 Cannula 05/27 0250 97.5 80 16 119/68 97 Nasal 2.0 Cannula 05/26 2320 97.5 87 16 116/71 98 Nasal 2.0 Cannula 05/26 2052 2.0 05/26 1849 97.7 93 16 111/60 99 Nasal 2.0 Cannula 05/26 1434 97.9 93 18 95/50 97 Nasal 2.0 Cannula 05/26 1204 97.5 87 18 105/65 97 Nasal 2.0 Cannula I&O 05/27 0000 05/26 1600 05/26 0800 Intake Total 500 490 240 Output Total 675 300 350 Balance -175 190 -110 General Appearance Alert, Cooperative, No acute distress, Oriented to person only. HEENT Moist mucous membranes Lungs Clear to auscultation Neck Supple Cardiovascular No murmurs, gallops, rubs, Irregular S1S2 Abdomen Normal bowel sounds, Soft, No tenderness Extremities No edema Skin No Rashes Neurological No lateralizing signs LAB Results Laboratory Tests 05/27 0521 Chemistry Plasma Sodium (136 - 145 mmol/L) 141 Plasma Potassium (3.5 - 5.1 mmol/L) 3.6 Plasma Chloride (98 - 107 mmol/L) 102 CO2 (Enzymatic) (21 - 32 mmol/L) 31 BUN (7 - 18 mg/dL) 23 Creatinine (0.6 - 1.3 mg/dL) 0.8 Est GFR ( Amer) (mL/min) >60 Est GFR (Non-Af Amer) (mL/min) >60 Glucose (70 - 110 mg/dL) 146 Plasma Calcium (8.5 - 10.1 mg/dL) 8.3 Plasma Magnesium (1.8 - 2.4 mg/dL) 1.9 Coagulation INR (0.8 - 1.2) 4.4 Hematology WBC (4.5 - 11.5 K/uL) 10.6 RBC (4.00 - 5.20 M/uL) 3.83 Hgb (12.0 - 16.0 gm/dL) 12.2 Hct (36.0 - 46.0 %) 36.4 MCV (80 - 100 fL) 95 MCH (26 - 34 pg) 32 RDW (11.6 - 14.8 %) 13.8 Neut % (Auto) (50 - 75 %) 86.6 Lymph % (Auto) (25 - 40 %) 8.5 [place] % (Auto) (3 - 14 %) 4.8 Eos % (Auto) (0 - 4 %) 0 Baso % (Auto) (0 - 2 %) 0.1 Plt Count, EDTA (150 - 400 K/uL) 222 PUBS MCHC (31 - 37 g/dL) 34 Assessment and Plan Problem List 1. Acute respiratory failure with hypoxia Plan Resolved, as she is off oxygen. Will perform ambulatory pulse ox today. 2. Acute decompensated heart failure Plan Improved. Will change back to PO lasix for tomorrow. 3. 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 4. ACUTE EXACERBATION OF RESTRICTIVE LUNG DISEASE Plan Will stop prednisone as this was likely not the cause of her symptoms. Nebs prn. 5. Atrial fibrillation Plan Continue diltiazem and lopressor. Altered mental status--checking UA to make sure no UTI. Initial blood culture positive for GPC--continue vanc for now. Awaiting speciation. Repeat cultures NGTD. FEN: Cardiac, KEL PPx: on coumadin Code: FULL Dispo: Pending PT eval, ambulatory pulse ox, and UA. CM on board for possible placement vs home services upon discharge. E&M Codes Rounding: Inpt-Moderate/[id number]
[2016-05-27 14:50] VITALS: BP 126/72
[2016-05-27 19:20] VITALS: BP 102/72
[2016-05-27 23:28] VITALS: BP 125/63
[2016-05-28 03:32] VITALS: BP 102/53
[2016-05-28 06:21] VITALS: BP 117/58
[2016-05-28 11:08] VITALS: BP 101/76
[2016-05-28] MEDS ORDERED: COUMADIN3 MG PO (12:11)
--- NOTE | 2016-05-28 12:16 | Provider's Discharge Care Plan ---
Problem, Goal, Plan Problem List 1. Acute decompensated heart failure Instructions: Follow up as directed, Take meds as directed, Continue taking your lasix as prescribed. Monitor your weight daily, and if you are gaining more than 3lbs in a day, call your doctor. If you have further trouble breathing, please return to the ER. 2. Aortic stenosis Instructions: Follow up as directed, Please follow up with your trauma registrar in the next 1-2 weeks to monitor your fluid status. 3. Atrial fibrillation Instructions: Follow up as directed, Take meds as directed, Continue taking coumadin at the reduced dose of 1mg daily. You will have an INR check in 3 days to monitor how thin your blood is. If you fall or hit your head, please come to the ER immediately.
--- NOTE | 2016-05-28 12:16 | Provider's Discharge Care Plan ---
Problem, Goal, Plan Problem List 1. Acute decompensated heart failure Instructions: Follow up as directed, Take meds as directed, Continue taking your lasix as prescribed. Monitor your weight daily, and if you are gaining more than 3lbs in a day, call your doctor. If you have further trouble breathing, please return to the ER. 2. Aortic stenosis Instructions: Follow up as directed, Please follow up with your date puller in the next 1-2 weeks to monitor your fluid status. 3. Atrial fibrillation Instructions: Follow up as directed, Take meds as directed, Continue taking coumadin at the reduced dose of 1mg daily. You will have an INR check in 3 days to monitor how thin your blood is. If you fall or hit your head, please come to the ER immediately.
--- NOTE | 2016-05-28 14:43 | Discharge Summary ---
Discharge Summary Report Admit Date 05/25/16 Discharge Date 05/28/16 Admission Diagnosis Acute hypoxic respiratory failure Acute decompensated failure Aortic stenosis Atrial fibrillation Discharge Diagnosis Acute hypoxic respiratory failure Decompensated diastolic heart failure Mod-severe aortic stenosis Atrial fibrillation Dementia Brief History Per H&P: 80yoF w/ hx of dCHF, aortic stenosis, afib, restrictive lung disease, who presents with worsening SOB over the past couple days. She has been coughing, but has not seen the color of the phlegm. She denies any fevers. She does have new orthopnea, and her LE swelling has been worsening over the past month or so. She has been on lasix, but her notes that this was increased signifcantly about 6 months ago without improvement in her swelling. She denies any chest pains, but her appetite has been very poor in the last couple weeks. She denies nausea, vomiting, or diarrhea. She denies having an echo done in the last couple years. Hospital Course Patient was admitted to the medical floor, and she underwent diuresis with resolution of her respiratory failure. She was weaned off oxygen prior to discharge. An echo was obtained, which showed an EF of 68% and mod-severe aortic stenosis. She was also placed on steroids and nebs due to her initial wheezing, but as this was likely due to volume overload, this was discontinued. She was evaluated by PT, who recommended home services which were set up by CM. As her INR was supratherapeutic on admission, so her coumadin was held until therapeutic. She will restart on 1mg daily and will have an INR check in 3 days. General Appearance Alert, Cooperative, No acute distress HEENT Mucous membran moist/pink Lungs Clear to auscultation Cardiovascular Irregularly irregular w/ ii/vi systolic murmur at 2rics Abdomen Normal bowel sounds, Soft, No tenderness Skin No Rashes Neurological nonfocal Lab/Imaging Laboratory Tests 05/28 05/28 05/27 0829 [id number] Chemistry Plasma Sodium (136 - 145 mmol/L) 141 Plasma Potassium (3.5 - 5.1 mmol/L) 3.1 Plasma Chloride (98 - 107 mmol/L) 101 CO2 (Enzymatic) (21 - 32 mmol/L) 32 BUN (7 - 18 mg/dL) 24 Creatinine (0.6 - 1.3 mg/dL) 0.9 Est GFR ( Amer) (mL/min) >60 Est GFR (Non-Af Amer) (mL/min) >60 Glucose (70 - 110 mg/dL) 134 Plasma Calcium (8.5 - 10.1 mg/dL) 8.2 Plasma Magnesium (1.8 - 2.4 mg/dL) 2.0 Coagulation INR (0.8 - 1.2) 2.7 Hematology WBC (4.5 - 11.5 K/uL) 10.9 RBC (4.00 - 5.20 M/uL) 4.13 Hgb (12.0 - 16.0 gm/dL) 13.0 Hct (36.0 - 46.0 %) 39.3 MCV (80 - 100 fL) 95 MCH (26 - 34 pg) 32 RDW (11.6 - 14.8 %) 13.8 Neut % (Auto) (50 - 75 %) 86.4 Lymph % (Auto) (25 - 40 %) 11.3 Mineral % (Auto) (3 - 14 %) 2.0 Eos % (Auto) (0 - 4 %) 0.2 Baso % (Auto) (0 - 2 %) 0.1 Plt Count, EDTA (150 - 400 K/uL) 270 PUBS MCHC (31 - 37 g/dL) 33 Toxicology Vancomycin Trough (10.0 - 20.0 ug/mL) 12.8 Urines Urine Color YELLOW Urine Appearance CLEAR Urine pH (5.0 - 8.0) 6.0 Ur Specific [place] (1.010 - 1.030) 1.020 Urine Protein (NEGATIVE) NEGATIVE Urine Ketones (NEGATIVE) NEGATIVE Urine Blood (NEGATIVE) NEGATIVE Urine Nitrite (NEGATIVE) NEGATIVE Urine Bilirubin (NEGATIVE) NEGATIVE Urine Urobilinogen (0.2 - 1.0 EU/dL) 0.2 Ur Leukocyte Esterase (NEGATIVE) NEGATIVE Urine RBC (0 - 1 rbc/hpf) 0-1 Urine WBC (0 - 1 wbc/hpf) 3-5 Ur Epithelial Cells (0 - 5 EPI/hpf) 3-5 Urine Bacteria (NONE SEEN) TRACE (<1+) Urine Glucose (NEGATIVE) NEGATIVE Urine Comment CULT NOT INDICATED Discharge Instructions/Meds Patient was instructed to follow up with her at home 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 She will continue physical therapy with home health. E&M Codes Discharge: Inpt >30 min spent/[id number]
--- NOTE | 2016-05-29 08:56 | ED MED RECONCILIATION SUMMARY ---
Patient: YSABEL GOLDEN Medication Reconciliation Report [facility] VisitID: [id number] [address] [place] [address] 80y, F Registration Date/Time: 05/25/2016 Weight: 72.5 kg Height/Length: 67 in. BMI: 25.1 ALLERGIES: None The patient's Home Medications are listed below: THE FOLLOWING MEDICATIONS NEED TO BE RECONCILED: Diltiazem HCl ER Oral 180 mg, 2xdaily Furosemide Oral 40 mg, 4x a day Metoprolol Tartrate Oral 150 mg, 2xday Potassimin Oral 20 mEq, 4xdaily Pravastatin Sodium Oral (80 mg) 1 tablet, daily Slow-Mag Oral 535mg, 1xday Vitamin D Oral (1000 unit) 1 capsule, 2xday Warfarin Sodium Oral (2 mg) 1 tablet, 2mg Sat, , 3mg Sat, Sat, Saturday, Saturday The source(s) of the original Home Medication information: Not obtained. The following Medications were given to the patient in the Emergency Department: Albuterol [Neb Tx] Neb TX 1 unit dose, administered: 05/25/2016 12:16:00 PM Lasix [IVP] IVP 40 mg, administered: 05/25/2016 1:46:00 PM SOLU-MEDROL [IVP] IVP 80 mg, administered: 05/25/2016 3:20:00 PM Xopenex [Neb TX] Neb TX 1 unit dose, administered: 05/25/2016 3:23:00 PM Rocephin [IVPB] IVPB bolus 0, then 2 gm 100 mL/hr, administered: 05/25/2016 4:05:00 PM The following Medications were prescribed to the patient: None.
--- NOTE | 2016-05-29 08:56 | ED MED RECONCILIATION SUMMARY ---
Patient: YSABEL GOLDEN Medication Reconciliation Report [facility] VisitID: [id number] [address] [place] [address] 80y, F Registration Date/Time: 05/25/2016 Weight: 72.5 kg Height/Length: 67 in. BMI: 25.1 ALLERGIES: None The patient's Home Medications are listed below: THE FOLLOWING MEDICATIONS NEED TO BE RECONCILED: Diltiazem HCl ER Oral 180 mg, 2xdaily Furosemide Oral 40 mg, 4x a day Metoprolol Tartrate Oral 150 mg, 2xday Potassimin Oral 20 mEq, 4xdaily Pravastatin Sodium Oral (80 mg) 1 tablet, daily Slow-Mag Oral 535mg, 1xday Vitamin D Oral (1000 unit) 1 capsule, 2xday Warfarin Sodium Oral (2 mg) 1 tablet, 2mg Sat, , 3mg Sat, Sat, Saturday, Saturday The source(s) of the original Home Medication information: Not obtained. The following Medications were given to the patient in the Emergency Department: Albuterol [Neb Tx] Neb TX 1 unit dose, administered: 05/25/2016 12:16:00 PM Lasix [IVP] IVP 40 mg, administered: 05/25/2016 1:46:00 PM SOLU-MEDROL [IVP] IVP 80 mg, administered: 05/25/2016 3:20:00 PM Xopenex [Neb TX] Neb TX 1 unit dose, administered: 05/25/2016 3:23:00 PM Rocephin [IVPB] IVPB bolus 0, then 2 gm 100 mL/hr, administered: 05/25/2016 4:05:00 PM The following Medications were prescribed to the patient: None.
--- NOTE | 2016-05-29 08:56 | ED MAR SUMMARY ---
..... Medication Administration Record [facility] [address] [place] [address] Patient: YSABEL GOLDEN Visit ID: [id number] 80y, F Weight: 72.5 kg Height/Length: 67 in BMI: 25.1 ALLERGIES: None Given 12:16 05/25/2016 [place] Tony, Medication Administered: ALBUTEROL [NEB TX], Dose: 1 unit dose Nebulizer Neb TX. Medication Ordered: Albuterol Neb Tx 2.5 mg (NOW, N). Given 13:46 05/25/2016 True Engel R.N. Medication Administered: LASIX [IVP], Dose: 40 mg IVP over 4 minute(s), Site: #1 right. Medication Ordered: Lasix IV 40 mg (NOW). Given 15:20 05/25/2016 True Engel R.N. Medication Administered: SOLU-MEDROL [IVP] (METHYLPREDNISOLONE SODIUM SUCC), Dose: 80 mg IVP over 1 minute(s), Site: #1 right. Medication Ordered: Solu-MEDROL IV 80 mg (NOW). Given 15:23 05/25/2016 [place] Tony, Medication Administered: XOPENEX [NEB TX] (LEVALBUTEROL HCL), Dose: 1 unit dose Neb TX. Medication Ordered: Xopenex Neb Tx 1 unit dose (NOW). Start 16:05 05/25/2016 True Engel R.N., Stop 18:13 05/25/2016 Wanda Blokc R.N. Medication Administered: ROCEPHIN [IVPB] (CEFTRIAXONE SODIUM), Dose: 2 gm IVPB over 30 minute(s), Rate: 100 mL/hr, Dispensed: 50 mL bag, Site: #1 right. Medication Ordered: Rocephin IV 2 gm/50mL (NOW).
--- NOTE | 2016-05-29 08:56 | ED DISCHARGE INSTRUCTIONS ---
Patient: YSABEL GOLDEN General Instructions [facility] VisitID: [id number] [address] [place] [address] 80y, F Registration Date/Time: 05/25/2016 Acute exacerbation of restrictive lung disease. Hypoxia Mild CHF Valvular heart disease. (Electronically signed by Wilton Gross MD 05/25/2016 16:31)
--- NOTE | 2016-05-29 08:56 | ED DISCHARGE INSTRUCTIONS ---
Patient: YSABEL GOLDEN General Instructions [facility] VisitID: [id number] [address] [place] [address] 80y, F Registration Date/Time: 05/25/2016 Acute exacerbation of restrictive lung disease. Hypoxia Mild CHF Valvular heart disease. (Electronically signed by Wilton Gross MD 05/25/2016 16:31)
--- NOTE | 2016-05-29 08:56 | ED MAR SUMMARY ---
..... Medication Administration Record [facility] [address] [place] [address] Patient: YSABEL GOLDEN Visit ID: [id number] 80y, F Weight: 72.5 kg Height/Length: 67 in BMI: 25.1 ALLERGIES: None Given 12:16 05/25/2016 [place] Tony, Medication Administered: ALBUTEROL [NEB TX], Dose: 1 unit dose Nebulizer Neb TX. Medication Ordered: Albuterol Neb Tx 2.5 mg (NOW, N). Given 13:46 05/25/2016 True Engel R.N. Medication Administered: LASIX [IVP], Dose: 40 mg IVP over 4 minute(s), Site: #1 right. Medication Ordered: Lasix IV 40 mg (NOW). Given 15:20 05/25/2016 True Engel R.N. Medication Administered: SOLU-MEDROL [IVP] (METHYLPREDNISOLONE SODIUM SUCC), Dose: 80 mg IVP over 1 minute(s), Site: #1 right. Medication Ordered: Solu-MEDROL IV 80 mg (NOW). Given 15:23 05/25/2016 [place] Tony, Medication Administered: XOPENEX [NEB TX] (LEVALBUTEROL HCL), Dose: 1 unit dose Neb TX. Medication Ordered: Xopenex Neb Tx 1 unit dose (NOW). Start 16:05 05/25/2016 True Engel R.N., Stop 18:13 05/25/2016 Wanda Block R.N. Medication Administered: ROCEPHIN [IVPB] (CEFTRIAXONE SODIUM), Dose: 2 gm IVPB over 30 minute(s), Rate: 100 mL/hr, Dispensed: 50 mL bag, Site: #1 right. Medication Ordered: Rocephin IV 2 gm/50mL (NOW).
== END 2016-05-28 13:30 | disposition home health service (06) | DRG 291 ==
LOC: ED SRH 10:35 → TRANS SRH 16:09 → ACUTE2 SRH 16:12
PROVIDERS: ADMIT Internal Medicine
DX: I11.0 Hypertensive heart disease with heart failure (principal); I50.33 Acute on chronic diastolic (congestive) heart failure; J44.1 Chronic obstructive pulmonary disease with (acute) exacerbation; J45.901 Unspecified asthma with (acute) exacerbation; J96.01 Acute respiratory failure with hypoxia; I48.0 Paroxysmal atrial fibrillation; Z79.01 Long term (current) use of anticoagulants; I35.0 Nonrheumatic aortic (valve) stenosis; E78.00 Pure hypercholesterolemia, unspecified; F03.90 Unspecified dementia, unspecified severity, without behavioral disturbance, psychotic disturbance, mood disturbance, and anxiety
CPT/HCPCS: 85241; 90004; 90047; 90065; 90074; 90098; 90100; 90616; 91320; 91400; 91583; 91672; 92610; 92720; 94060; 95059

== ENCOUNTER 2016-05-31 12:05 | Outpatient (CLI) | payer OTHER ==
[~2016-05-31 12:05] MED LIST changes: +COUMADIN2 MG PO; +COUMADIN3 MG PO; +FUROSEMIDE40 MG PO; +LOPRESSOR50 MG PO; +MAG-G500 MG PO; +VITAMIN D-31000 UNIT PO
== END 2016-05-31 23:00 ==
LOC: LAB SRH 12:05
DX: Z79.01 Long term (current) use of anticoagulants (principal); I48.91 Unspecified atrial fibrillation
CPT/HCPCS: 90074; 94060

== ENCOUNTER 2016-06-08 14:03 | Outpatient (CLI) | payer OTHER | END 2016-06-08 23:00 | LOC: LAB SRH 14:03 | DX: Z51.81 Encounter for therapeutic drug level monitoring (principal); I48.91 Unspecified atrial fibrillation | CPT/HCPCS: 90074; 94060 ==

== ENCOUNTER 2016-06-15 15:06 | Outpatient (CLI) | payer OTHER | END 2016-06-15 23:00 | disposition home or self-care (01) | LOC: LAB SRH 15:06 | DX: Z51.81 Encounter for therapeutic drug level monitoring (principal); Z79.01 Long term (current) use of anticoagulants; I48.91 Unspecified atrial fibrillation | CPT/HCPCS: 90074; 94060 ==

== ENCOUNTER 2016-06-29 14:02 | Outpatient (CLI) | payer OTHER | END 2016-06-29 23:00 | LOC: LAB SRH 14:02 | DX: Z51.81 Encounter for therapeutic drug level monitoring (principal); Z79.01 Long term (current) use of anticoagulants; I48.91 Unspecified atrial fibrillation | CPT/HCPCS: 90074; 94060 ==

== ENCOUNTER 2016-07-19 09:21 | Outpatient (CLI) | payer OTHER | END 2016-07-19 23:00 | disposition home or self-care (01) | LOC: LAB SRH 09:21 | DX: Z51.81 Encounter for therapeutic drug level monitoring (principal); Z79.01 Long term (current) use of anticoagulants; I48.91 Unspecified atrial fibrillation | CPT/HCPCS: 90074; 94060 ==

== ENCOUNTER 2016-07-25 11:39 | Outpatient (CLI) | payer OTHER | END 2016-07-25 23:00 | LOC: LAB SRH 11:39 | DX: Z79.01 Long term (current) use of anticoagulants (principal); I48.91 Unspecified atrial fibrillation | CPT/HCPCS: 90074; 94060 ==

== ENCOUNTER 2016-09-06 14:37 | Outpatient (CLI) | payer OTHER | END 2016-09-06 23:00 | LOC: LAB SRH 14:37 | DX: Z79.01 Long term (current) use of anticoagulants (principal); I48.91 Unspecified atrial fibrillation | CPT/HCPCS: 90074; 94060 ==